=== PATIENT | male | born 1950 | race Caucasian/White ===

== ENCOUNTER → 2024-12-29 15:08 | Outpatient (REF) | payer MEDICARE, OTHER, SELFPAY | LOC: MRI 15:08 | PROVIDERS: ATTENDING PHYSICIAN Internal Medicine Transplant Hepatology; FAMILY PHYSICIAN Family Medicine | DX: K74.60 Unspecified cirrhosis of liver (principal); K76.0 Fatty (change of) liver, not elsewhere classified | CPT/HCPCS: 74183; 76391; A9581 ==